=== PATIENT | male | born 1940 | race Caucasian/White ===

== ENCOUNTER 2019-04-21 08:45 | Day surgery (SDC) | payer OTHER ==
[~2019-04-21 08:45] MED LIST: ALEVE220 M1 PO; AMANTADINE HCL100 MG PO; AVODART0.5 MG PO; CARBIDOPA-LEVO1 EAC9 PO; DUTASTERIDE-TA1 EACH PO; HYDROCHLOROTHIA25 MG PO
== END 2019-04-21 14:36 | disposition home or self-care (01) ==
LOC: CIR.AMB 08:45 → ADM 11:30 → CIR.AMB 11:30
DX: N20.1 Calculus of ureter (principal); N20.0 Calculus of kidney

== ENCOUNTER 2020-02-27 11:22 | Outpatient (CLI) | payer OTHER | END 2020-02-27 11:29 | disposition home or self-care (01) | LOC: NUCLEAR 11:22 | PROVIDERS: ATTEND Internal Medicine Sports Medicine | DX: I82.493 Acute embolism and thrombosis of other specified deep vein of lower extremity, bilateral (principal) ==

== ENCOUNTER 2022-02-23 08:14 | Outpatient (CLI) | payer OTHER | END 2022-02-23 09:06 | disposition home or self-care (01) | LOC: LAB 08:14 | PROVIDERS: ATTEND Internal Medicine Sports Medicine | DX: D64.89 Other specified anemias (principal); E11.9 Type 2 diabetes mellitus without complications; E78.2 Mixed hyperlipidemia; I10 Essential (primary) hypertension; E03.8 Other specified hypothyroidism; R97.20 Elevated prostate specific antigen [PSA]; R29.898 Other symptoms and signs involving the musculoskeletal system ==

== ENCOUNTER → 2023-04-21 10:49 | Outpatient (CLI) | payer OTHER ==
[2023-04-21 11:35] LABS: HEMOGLOBIN 14.2 g/dL (13-16.00); MEAN CELL VOLUME 96.7 fL (80.0-100.00); MEAN CORPUSCULAR HEMOGLOBIN 31.8 pg (27.00-32.0); MEAN CORPUSCULAR HGB CONC 32.9 g/dl (32.0-36.0); PLATELET COUNT 229 K/uL (150-450); RED BLOOD COUNT 4.45 M/uL (4.00-6.00); RED CELL DISTRIBUTION WIDTH 14.3 % (11.5-14.5)
[2023-04-21 12:05] LABS: MYCOPLASMA PNEUMONIAE IGM NON REACTIVE (NO REACTIVE)
== END | disposition home or self-care (01) ==
LOC: LAB 10:49
PROVIDERS: ATTEND Internal Medicine Sports Medicine
DX: R05.9 Cough, unspecified (principal); R06.02 Shortness of breath; J20.8 Acute bronchitis due to other specified organisms; J12.89 Other viral pneumonia; J98.8 Other specified respiratory disorders; J06.9 Acute upper respiratory infection, unspecified; Z20.822 Contact with and (suspected) exposure to COVID-19; J15.7 Pneumonia due to Mycoplasma pneumoniae; A49.3 Mycoplasma infection, unspecified site

== ENCOUNTER 2025-02-14 08:22 | Outpatient (CLI) | payer OTHER ==
[2025-02-14 09:48] LABS: BASO % 1.0 % (0.1-1.2); EOS # 0.27 (0.04-0.54); EOS % 4.0 % (0.7-7.0); LYMPH # 1.60 (1.18-3.74); LYMPH % 23.4 % (19.3-53.1); MEAN PLATELET VOLUME 11.30 fl (9.4-12.4); MONO # 0.65 (0.24-0.82); MONO % 9.5 % (4.7-12.5); NEUT # 4.22 (1.56-6.13); NEUT % 61.8 % (34.0-71.1); RED CELL DISTRIBUTION WIDTH 14.0 % (11.6-14.4); URINE APPEARANCE Clear; URINE BILIRRUBIN Negative (NEGATIVE); URINE COLOR Yellow; URINE GLUCOSE Negative (NEGATIVE); URINE KETONE Negative (NEGATIVE); URINE LEUKOCYTE Trace; URINE NITRATE Negative; URINE PROTEIN Negative (NEGATIVE); URINE UROBILINOGEN 0.2 E.U./dl
[2025-02-14 10:07] LABS: URINE BLOOD TRACES
[2025-02-14 10:08] LABS: URINE BACTERIA SOME; URINE EPITHELIAL CELLS 0-4 /HPF; URINE WBC 13-20 /hpf
[2025-02-14 10:55] LABS: ALT/SGPT 10.0 U/L (12-78); AST/SGOT 24.0 U/L (15-37); BILIRUBIN TOTAL 0.57 mg/dL (0.3-1.2); BUN CREA RATIO 17.0 (7.0-25.0); CHOL HDL RATIO 2.9 (0-5.0); CREATININE SERUM 1.27 mg/dL (0.70-1.30); GFR 54.29; GLOBULINA 3.2 G/DL (2.4-3.5); GLUCOSE FASTING 96.0 mg/dL (65-100); HDL 62.0 mg/dl (40-60); LDL 106.0 mg/dl (0-130); OSMOLALITY SERUM 296.0 MOSM/KG (275-295); PROSTATIC SPECIFIC ANTIGEN 1.8 NG/ML (0.010-4.00); T4 FREE 0.9 NG/ML (0.76-1.46); TSH 2.75 uIU/mL (0.358-3.74); VLDL 14.0 (0-39)
== END 2025-02-14 08:29 | disposition home or self-care (01) ==
LOC: LAB 08:22
PROVIDERS: ATTEND Internal Medicine Sports Medicine
DX: D64.9 Anemia, unspecified (principal); E11.9 Type 2 diabetes mellitus without complications; E78.2 Mixed hyperlipidemia; I10 Essential (primary) hypertension; E03.8 Other specified hypothyroidism; R97.20 Elevated prostate specific antigen [PSA]